=== PATIENT | female | born 1945 | race Caucasian/White ===

== ENCOUNTER → 2019-04-15 13:35 | Outpatient (CLI) | payer MEDICARE, OTHER, SELFPAY ==
--- NOTE | 2019-04-15 | DI.ECHO.S_ITS ---
[facility] +---------+ : : [address] : [address] : : : : [id number] : : : : Phone: [phone] +---------+ Echocardiogram Report + + :Name: SANDY MEJIA Study Date: 04/15/2019 Height: 65 in : :[facility] Exam Location: [facility] Weight: 207 lb : : Gender: Female BSA: 2.0 m2 : :: 1945 Age: 73 yrs BP: 134/78 mmHg: :Reason For Study: MURMUR : : Performed By: Cam Loco : :Referring: DUTCH MARTIN : + + Interpretation Summary 1) Mildly increased.left ventricular wall thickness (concentric) with normal size, normal wall motion, and normal systolic function (EF 65-70%). 2) Normal right ventricualr size and function. 3) No significant valvular abnormalities. 4) The ascending aorta is at the upper limits of normal in size at 4.0cm. 5) No prior Echo available for comparison. Procedure: A two-dimensional transthoracic echocardiogram with color flow and Doppler was performed. The study quality was technically adequate. There is no prior echocardiogram noted for this patient. The patient was in normal sinus rhythm during the exam. Left Ventricle: The left ventricle is normal in size. Left ventricular wall thickness is mildly increased. There is no echo evidence for significant left ventricular outflow tract obstruction. The ejection fraction is estimated to be 65-70%. There are no focal wall motion abnormalities. Right Ventricle: The right ventricle is normal in size and function. Atria: The left atrium is moderately dilated. Right atrial size is normal. The interatrial septum is intact with no evidence for an atrial septal defect. Mitral Valve: There is mild to moderate mitral annular calcification. The mitral valve leaflets are mildly calcified. There is trace mitral regurgitation. Aortic Valve: The aortic valve is trileaflet. The aortic valve opens well. The aortic valve is slightly calcified. There is no aortic valve stenosis. There is trace aortic regurgitation. Tricuspid Valve: The tricuspid valve is normal in structure and function. There is mild tricuspid regurgitation. The right ventricular systolic pressure is estimated to be at least 33 mmHg based on an estimated right atrial pressure of 3 mm Hg. Pulmonic Valve: The pulmonic valve is not well seen, but is grossly normal. There is no pulmonic valvular regurgitation. Great Vessels: The aortic root is normal size. The ascending aorta is at the upper limits of normal in size. The pulmonary artery is normal size. The IVC is of normal diameter and collapses greater than 50% with a sniff. This suggests a low right atrial pressure of 3 mm Hg. Pericardium/ Pleura There is no pericardial effusion. There is no pleural effusion. MMode/2D Measurements & Calculations LVIDd: 4.2 cm LVOT diam: 2.0 cm LVIDs: 2.7 cm Ao root diam: 3.1 cm FS: 34.8 % Aortic Jxn: 2.8 cm EPSS: 0.31 cm asc Aorta Diam: 4.0 cm IVSd: 1.1 cm Ao Arch Diam (Prox Trans): 2.6 cm LVPWd: 1.1 cm LV alfonso. diameter/BSA (cm/m^2): 2.1 LV sys. diameter/BSA (cm/m^2): 1.4 LA dimension: 4.0 cm RA long axis: 5.6 cm LA A2 area: 22.5 cm2 RA area: 17.4 cm2 LA A4 area: 24.8 cm2 RA vol: 45.8 ml LA length (vol): 5.7 cm RA : 22.8 ml/m2 LA vol: 83.8 ml IVC diam: 1.6 cm LA vol index: 41.7 ml/m2 RVD1 (basal): 3.4 cm RVD2 (mid): 3.8 cm Doppler Measurements & Calculations Ao V2 max: 171.0 cm/sec LVOT Max Jeffery: 120.6 cm/sec Ao V2 mean: 124.6 cm/sec LV V1 max P.8 mmHg Ao max P.7 mmHg LV V1 VTI: 30.8 cm Ao mean P.6 mmHg NIKUNJ(I,D): 2.7 cm2 Ao V2 VTI: 36.8 cm NIKUNJ(V,D): 2.2 cm2 sev ratio: 0.84 NIKUNJ indexed to BSA (cm^2/m^2): 1.3 MV E max jeffery: 93.6 cm/sec TR max jeffery: 274.0 cm/sec MV A max jeffery: 124.4 cm/sec TR max P.0 mmHg MV E/A: 0.75 PA V2 max: 118.3 cm/sec Med Peak E' Jeffery: 5.7 cm/sec PA V2 mean: 85.8 cm/sec E/E' med: 16.5 PA mean P.2 mmHg Lat Peak E' Jeffery: 6.7 cm/sec PA pr(Accel): 44.1 mmHg E/E' lat: 14.0 PA Accel Time: 0.08 sec E/e' average: 15.2 MV dec time: 0.26 sec SV(LVOT): 98.0 ml Reading Physician:03:47 PM
== END ==
PROVIDERS: PCP Nurse Practitioner Gerontology; Visit Provider Internal Medicine Cardiovascular Disease
DX: I07.1 Rheumatic tricuspid insufficiency (principal); R01.1 Cardiac murmur, unspecified
CPT/HCPCS: 93306

== ENCOUNTER → 2022-09-11 09:09 | Outpatient (CLI) | payer MEDICARE, OTHER, SELFPAY ==
--- NOTE | 2022-09-11 | DI.ECHO.S_ITS ---
[facility] +---------+ : : [address] : : : : [phone] : : : : Phone: [phone] +---------+ Echocardiogram Report + + :Name: SANDY MEJIA Study Date: 09/11/2022 Height: 64.5 in: :[facility] ReadingLocation: Weight: 177 lb : : Gender: Female BSA: 1.9 m2 : :: 1945 Age: 76 yrs BP: 137/74 mmHg: :Reason For Study: SUPRAVENTRICULAR TACHYCARDIA : :Ordering Physician: MARIBELL, : :DUTCH Performed By: Sravanthi Brower : :Referring: DUTCH MARTIN : + + Interpretation Summary 1) Normal left ventricular thickness, size, wall motion, and systolic function (EF 60-65%). 2) Normal right ventricular size and function. 3) Diastolic parameters suggest a pseudonormalization pattern, consistent with probable elevated filling pressures. 4) No significant valvular abnormalities. 5) Compared to the Echo done 04/15/2019, no significant change. Procedure: A two-dimensional transthoracic echocardiogram with color flow and Doppler was performed. The study quality was technically adequate. Comparison is made with the echocardiogram of 04/15/2019. The patient was in sinus bradycardia with heart rates between 45-50 bpm during the exam. Left Ventricle: The left ventricle is normal in size and wall thickness. The ejection fraction is estimated to be 60-65%. Left ventricular systolic function appears normal without focal wall motion abnormalities. Diastolic parameters suggest a pseudonormalization pattern, consistent with probable elevated filling pressures. Right Ventricle: The right ventricle grossly appears normal in size with probable normal systolic function. Atria: The left atrium is moderately dilated. Right atrial size is normal. Mitral Valve: The mitral valve leaflets are mildly calcified. There is mild mitral annular calcification. There is trace mitral regurgitation. Aortic Valve: The aortic valve is trileaflet. The aortic valve opens well. There is no aortic valve stenosis. There is trace aortic regurgitation. Tricuspid Valve: The tricuspid valve is normal in structure and function. There is mild tricuspid regurgitation. The right ventricular systolic pressure is estimated to be at least 32 mmHg based on an estimated right atrial pressure of 3 mm Hg. Pulmonic Valve: The pulmonic valve leaflets are thin and pliable; valve motion is normal. There is trace pulmonic regurgitation. Great Vessels: The aortic root is normal size. The ascending aorta is at the upper limits of normal in size. The IVC is of normal diameter and collapses greater than 50% with a sniff. This suggests a low right atrial pressure of 3 mm Hg. Pericardium/ Pleura There is no pericardial effusion. There is no pleural effusion. MMode/2D Measurements & Calculations LVIDd: 4.5 cm LVOT diam: 1.9 cm LVIDs: 2.6 cm Ao root diam: 3.2 cm FS: 42.7 % asc Aorta Diam: 3.9 cm IVSd: 1.0 cm Ao Arch Diam (Prox Trans): 2.7 cm LVPWd: 0.84 cm LV alfonso. diameter/BSA (cm/m^2): 2.4 LV sys. diameter/BSA (cm/m^2): 1.4 LA A2 area: 25.4 cm2 RA long axis: 5.6 cm LA A4 area: 23.8 cm2 RA area: 19.5 cm2 LA length (vol): 6.1 cm RA vol: 57.9 ml LA vol: 84.5 ml RA : 31.0 ml/m2 LA vol index: 45.2 ml/m2 IVC diam: 1.5 cm RVD1 (basal): 4.0 cm RVD2 (mid): 3.6 cm Doppler Measurements & Calculations Ao V2 max: 159.5 cm/sec LVOT Max Jeffery: 121.9 cm/sec Ao V2 mean: 115.4 cm/sec LV V1 max P.9 mmHg Ao max P.2 mmHg LV V1 VTI: 31.4 cm Ao mean P.7 mmHg NIKUNJ(I,D): 2.3 cm2 Ao V2 VTI: 39.0 cm NIKUNJ(V,D): 2.2 cm2 sev ratio: 0.81 NIKUNJ indexed to BSA (cm^2/m^2): 1.2 MV E max jeffery: 96.1 cm/sec TR max jeffery: 269.0 cm/sec MV A max jeffery: 130.6 cm/sec TR max P.9 mmHg MV E/A: 0.74 PA V2 max: 104.1 cm/sec Med Peak E' Jeffery: 4.7 cm/sec PA V2 mean: 72.8 cm/sec E/E' med: 20.4 PA mean P.3 mmHg Lat Peak E' Jeffery: 4.9 cm/sec PA pr(Accel): 41.3 mmHg E/E' lat: 19.6 E/e' average: 20.0 MV dec time: 0.47 sec MVA(VTI): 1.7 cm2 MV V2 mean: 72.7 cm/sec SV(LVOT): 88.8 ml MV mean P.6 mmHg MV V2 VTI: 51.6 cm Reading Physician:08:50 AM
== END ==
PROVIDERS: PCP Nurse Practitioner Gerontology; Referring Provider Internal Medicine Cardiovascular Disease; Visit Provider Internal Medicine Cardiovascular Disease
DX: I47.1 Supraventricular tachycardia (principal); I47.29 Other ventricular tachycardia; I08.1 Rheumatic disorders of both mitral and tricuspid valves
CPT/HCPCS: 93306